=== PATIENT | female | born 1955 | race Caucasian/White ===

== ENCOUNTER 2020-06-25 18:02 | Emergency (ER) | payer OTHER, MEDICARE ==
[2020-06-25] MEDS ORDERED: LISINOP/HCTZ1 TAB PO (18:21)
[2020-06-25] MEDS ORDERED: TRAMADOL HYDROC50 MG PO (19:37)
[2020-06-25 19:52] VITALS: BP 152/81
== END 2020-06-25 20:15 | disposition home or self-care (01) | DRG 552 ==
LOC: ED 18:02
DX: M54.2 Cervicalgia (principal); I10 Essential (primary) hypertension; V43.52XA Car driver injured in collision with other type car in traffic accident, initial encounter